=== PATIENT | female | born 1960 | race Caucasian/White ===

== ENCOUNTER → 2019-07-22 14:47 | Outpatient (CLI) | payer OTHER, SELFPAY ==
--- NOTE | 2019-07-28 08:27 | PM.PFT.1 ---
Pulmonary Function Test Referral & Results Date Patient Seen: 07/22/19 Requesting provider: Derrick Goldstein Indication: Asthma Results: The spirometry demonstrates an FVC of 4.3 L which is 107% of predicted. The FEV1 was measured at 3.29 L which is 104% of predicted. The FEV1/FVC ratio was 75 which is 96% of predicted. Following the administration of bronchodilator there was no appreciable change. Lung volumes show an SVC of 4.28 L which is 116% of predicted. The diffusing capacity was measured at 25.16 which is 77% of predicted. No hemoglobin value was provided, so no correction for potential anemia could be made, if appropriate. The maximum voluntary ventilation was normal Interpretation: This study demonstrates probably normal pulmonary function. Spirometry is certainly normal without evidence of any asthma or obstructive lung disease. There may be a minimal reduction in diffusing capacity suggesting some element of disease at the capillary alveolar level as above, unless patient is anemic. Clinical correlation suggested
== END ==
PROVIDERS: Family Provider Family Medicine; PCP Family Medicine; Referring Provider Family Medicine; Visit Provider Physician Assistant
DX: J45.40 Moderate persistent asthma, uncomplicated (principal); Z87.891 Personal history of nicotine dependence
CPT/HCPCS: 94060; 94726; 94729

== ENCOUNTER → 2020-03-29 16:11 | Outpatient (CLI) | payer OTHER, SELFPAY ==
--- NOTE | 2020-03-29 | DI.RAD.S_ITS ---
PROCEDURE: XR CERVICAL SPINE 2V OR 3V INDICATIONS: Arthrodesis status TECHNIQUE: 3 view(s) of the cervical spine were acquired. COMPARISON: None. FINDINGS: Bones: No fractures or dislocations to the T1 level. The lateral masses of C1 appear intact on the odontoid view. No suspicious bony lesions. Prior ACDF C4-C5 and C5-C6 with hardware and bone grafts in expected positions. Moderate C6-C7 disc degeneration. Mild multilevel uncovertebral hypertrophy. There is loss of the normal lordosis. Soft tissues: No prevertebral soft tissue swelling. IMPRESSION: 1. Prior ACDF C4-C5 and C5-C6. 2. Moderate C6-C7 disc degeneration and mild multilevel uncovertebral hypertrophy. 3. Loss of lordosis. Dictated by: Miguelito Costa [facility] Interpreted: Neftaly Arredondo MD on 03/29/2020 at 16:48 Approved by: Reilly Arredondo M.D. on 03/30/2020 at 11:12
== END ==
PROVIDERS: Family Provider Family Medicine; PCP Family Medicine; Referring Provider Physician Assistant; Visit Provider Physician Assistant
DX: M50.323 Other cervical disc degeneration at C6-C7 level (principal); Z98.1 Arthrodesis status
CPT/HCPCS: 72040

== ENCOUNTER → 2023-07-30 10:56 | Outpatient (CLI) | payer OTHER, SELFPAY ==
[2023-07-30 20:35] LABS: Folate > 20.0 ng/mL (2.76-20.0); Vitamin B12 507 pg/mL (239-931)
[2023-08-08 10:35] LABS: Gamma-Tocopherol 2.3 mg/L (0.5-4.9)
== END ==
PROVIDERS: PCP Family Medicine; Visit Provider Psychiatry & Neurology Neurology
DX: G95.9 Disease of spinal cord, unspecified (principal)
CPT/HCPCS: 82525; 82607; 82746; 84446

== ENCOUNTER → 2024-02-17 11:09 | Outpatient (CLI) | payer OTHER, SELFPAY | PROVIDERS: PCP Family Medicine; Visit Provider Physician Assistant Medical | DX: N76.0 Acute vaginitis (principal) | CPT/HCPCS: 87086 ==

== ENCOUNTER → 2024-03-16 12:31 | Outpatient (CLI) | payer OTHER, SELFPAY | PROVIDERS: PCP Family Medicine; Visit Provider Nurse Practitioner Adult Health | DX: N94.19 Other specified dyspareunia (principal); N89.8 Other specified noninflammatory disorders of vagina | CPT/HCPCS: 87086; 87798; 87801 ==

== ENCOUNTER → 2024-04-27 13:50 | Outpatient (CLI) | payer OTHER, SELFPAY ==
[2024-04-27 20:28] LABS: Add Manual Diff / Slide Review NO; Basophils Absolute Auto 100 /uL (0-100); Basophils Percent Auto 0.8 % (0-2); Eosinophils Absolute Auto 200 /uL (0-450); Eosinophils Percent Auto 2.1 % (2-4); Hematocrit 43.9 % (36-46); Hemoglobin 14.5 g/dL (12.0-16.0); Lymphocytes Absolute Auto 3200 /uL (1100-4500); Lymphocytes Percent Auto 36.7 % (25-40); Mean Corpuscular Hemoglobin 32.5 PG (26-34); Mean Corpuscular Volume 98.5 fL (80-100); Monocytes Absolute Auto 700 /uL (0-900); Monocytes Percent Auto 7.7 % (3-14); Neutrophils Absolute Auto 4600 /uL (1500-7000); Neutrophils Percent Auto 52.7 % (50-75); Platelet Count 318 X10^3/uL (150-400); Red Blood Cell Count 4.46 X10^6/uL (4.0-5.2); White Blood Cell Count 8.8 X10^3/uL (4.5-11.0)
[2024-04-27 20:33] LABS: Appearance Urine UA CLEAR; Bilirubin Urine UA NEGATIVE (NEGATIVE); Color Urine UA YELLOW; Glucose Urine UA NEGATIVE (Negative); Ketones Urine UA NEGATIVE (NEGATIVE); Leukocyte Esterase Urine UA TRACE (NEGATIVE); Nitrite Urine UA NEGATIVE (Negative); Occult Blood Urine UA TRACE-INTACT (Negative); Protein Urine UA NEGATIVE (Negative); Specific Gravity Urine UA <=1.005 (1.000-1.035); Urobilinogen Urine UA 0.2 E.U./dL (0.2)
[2024-04-27 20:34] LABS: pH Urine UA 6.5 (4.5-8.0)
[2024-04-27 20:41] LABS: Blood Urea Nitrogen 12 mg/dL (7-17); Carbon Dioxide 23 mmol/L (22-32); Chloride 107 mmol/L (98-107); Estimated Glomerular Filt Rate > 60 mL/min (>60); Glucose 97 mg/dL (80-110); HEMOLYSIS < 15 (0-50); Potassium 4.2 mmol/L (3.4-5.1); Sodium 135 mmol/L (137-145)
[2024-04-27 20:48] LABS: Bacteria Urine Occasional (0-1); Culture Indicated Urine Cult Not Indicated; RBC Urine 0-1/HPF (0-5/HPF); Squamous Epithelial Cell Urine 0-1 /HPF (0-5/HPF); Urine Volume 10mL (spun); WBC Urine 0-1/HPF (0-5/HPF)
== END ==
PROVIDERS: PCP Family Medicine; Visit Provider Internal Medicine Gastroenterology
DX: R39.198 Other difficulties with micturition (principal)
CPT/HCPCS: 80048; 81001; 85025

== ENCOUNTER → 2024-10-20 10:15 | Outpatient (CLI) | payer MEDICARE, OTHER, SELFPAY | LOC: PHYS 10:20 | PROVIDERS: Family Provider Family Medicine; PCP Family Medicine; Referring Provider Physical Medicine & Rehabilitation; Visit Provider Physical Medicine & Rehabilitation | DX: M48.02 Spinal stenosis, cervical region (principal); M54.16 Radiculopathy, lumbar region | CPT/HCPCS: 95886; 95913 ==

== ENCOUNTER → 2024-10-20 10:22 | Outpatient (CLI) | payer MEDICARE, OTHER, SELFPAY | LOC: PHYS 10:23 | PROVIDERS: Family Provider Family Medicine; PCP Family Medicine; Referring Provider Physical Medicine & Rehabilitation; Visit Provider Physical Medicine & Rehabilitation | DX: M48.02 Spinal stenosis, cervical region (principal); M54.16 Radiculopathy, lumbar region; R94.131 Abnormal electromyogram [EMG] | CPT/HCPCS: 95886; 95911; 95913 ==

== ENCOUNTER → 2025-03-31 10:31 | Outpatient (CLI) | payer MEDICARE, OTHER, SELFPAY ==
[2025-03-31 19:27] LABS: Add Manual Diff / Slide Review NO; Hematocrit 44.3 % (36-46); Hemoglobin 14.3 g/dL (12.0-16.0); Lymphocytes Absolute Auto 2300 /uL (1100-4500); Mean Corpuscular HGB Conc 32.3 % (30-36); Mean Corpuscular Hemoglobin 31.6 PG (26-34); Mean Corpuscular Volume 97.7 fL (80-100); Platelet Count 313 X10^3/uL (150-400)
[2025-03-31 19:33] LABS: Blood Urea Nitrogen 11 mg/dL (7-17); Calcium 9.7 mg/dL (8.4-10.2); Carbon Dioxide 27 mmol/L (22-32); Chloride 105 mmol/L (98-107); Cholesterol 262 mg/dL (140-199); Estimated Glomerular Filt Rate > 60 mL/min (>60); Glucose 98 mg/dL (70-99); HDL Cholesterol 57 mg/dL (40-60); HEMOLYSIS < 15 (0-50); Potassium 4.3 mmol/L (3.4-5.1); Sodium 138 mmol/L (137-145); Triglycerides 197 mg/dL (35-150)
[2025-03-31 20:10] LABS: TSH w/ Reflex to FT4 1.20 uIU/mL (0.47-4.68)
== END ==
PROVIDERS: PCP Family Medicine; Visit Provider Family Medicine
DX: E78.5 Hyperlipidemia, unspecified (principal); Z13.6 Encounter for screening for cardiovascular disorders; Z13.1 Encounter for screening for diabetes mellitus; J44.9 Chronic obstructive pulmonary disease, unspecified; J45.991 Cough variant asthma; I10 Essential (primary) hypertension; R53.83 Other fatigue
CPT/HCPCS: 80048; 80061; 84443; 85025